=== PATIENT | female | born 1950 | race Caucasian/White ===

== ENCOUNTER 2023-06-15 04:23 | Day surgery (SDC) | payer OTHER, BC ==
[2023-06-06 10:30] VITALS: BMI 28.4
[2023-06-15] MEDS ORDERED: LIDOCAINE HCL 1%, 10 MG/ML (10ML VIAL) MDV ONE (12:33)
[2023-06-15] MEDS ORDERED: VASOPRESSIN 20 UNITS/ML VIAL IV ONE (12:33)
[2023-06-15] MEDS ORDERED: ACETAMINOPHEN 1000 MG/100 ML BAG IVPB ONE (14:36)
[2023-06-15] MEDS ORDERED: PHENYLEPHRINE HCL 10 MG/1 ML SINGLE DOSE VIAL ONE (14:42)
[2023-06-15] MEDS ORDERED: ROCURONIUM BROMIDE 50 MG/5 ML SYRINGE ONE (14:43)
[2023-06-15] MEDS ORDERED: SUCCINYLCHOLINE CHLORIDE 200 MG/10 ML SYRINGE ONE (14:44)
[2023-06-15] MEDS ORDERED: PROPOFOL 40 ML ONE (14:44)
[2023-06-15] MEDS ORDERED: DEXTROSE 5%-0.45% SALINE 1,000 ML IV SCH (14:45)
[2023-06-15] MEDS ORDERED: IBUPROFEN 800 MG/8 ML IJ IVPB SCH (14:45)
[2023-06-15] MEDS ORDERED: MIDAZOLAM HCL 2 MG/2 ML SINGLE DOSE VIAL ONE (14:47)
[2023-06-15] MEDS ORDERED: ceFAZolin SODIUM 1 GM VIAL IVPB ONE (15:00)
[2023-06-15] MEDS ORDERED: HYDROmorphone HCl 2 MG/ML VIAL ONE (15:29)
[2023-06-15] MEDS ORDERED: oxyCODONE HCL 5 MG TABLET PO PRN (16:28)
[2023-06-15 18:44] VITALS: RESP 16; TEMP 97.5
[2023-06-15 19:36] VITALS: BP 112/63; PULSE 69
== END 2023-06-15 19:30 | disposition home or self-care (01) ==
LOC: JASU-SURG 04:23
PROVIDERS: ATTEND Urology
PROC: 0TSD0ZZ Reposition Urethra, Open Approach (ICD-10-PCS; principal; 2023-06-15 15:00)
PROC: 0JQC0ZZ Repair Pelvic Region Subcutaneous Tissue and Fascia, Open Approach (ICD-10-PCS; 2023-06-15 15:00)
DX: N39.3 Stress incontinence (female) (male) (principal); N81.10 Cystocele, unspecified
CPT/HCPCS: 57240; 57288; C1771; 82962; 88302-TC; 94760

== ENCOUNTER 2024-01-17 04:33 | Day surgery (SDC) | payer OTHER, BC ==
[2023-12-17 12:41] VITALS: BMI 31.4
[2024-01-17 14:11] VITALS: TEMP 98.6
[2024-01-17 14:36] VITALS: RESP 16
[2024-01-17 14:42] VITALS: BP 110/63; PULSE 59
== END 2024-01-17 16:07 | disposition home or self-care (01) ==
LOC: JASU-ENDO 04:33
PROVIDERS: ATTEND Internal Medicine Gastroenterology
PROC: 0DJD8ZZ Inspection of Lower Intestinal Tract, Via Natural or Artificial Opening Endoscopic (ICD-10-PCS; principal; 2024-01-17 12:00)
DX: Z12.11 Encounter for screening for malignant neoplasm of colon (principal); K57.30 Diverticulosis of large intestine without perforation or abscess without bleeding; Z86.010 Personal history of colon polyps; E11.9 Type 2 diabetes mellitus without complications; Z79.85 Long-term (current) use of injectable non-insulin antidiabetic drugs
CPT/HCPCS: 82962